=== PATIENT | male | born 1985 | race Two or more races ===

== ENCOUNTER 2023-03-18 22:07 | Emergency (ER) | payer OTHER ==
[~2023-03-18] VITALS: Ht 205.7 cm; Wt 97.5 kg
[2023-03-19 01:06] LABS: HEMATOCRIT 43.8 % (39.0-48.0); HEMOGLOBIN 15.3 g/dL (13-16.00); MEAN CELL VOLUME 86.1 fL (80.0-100.00); MEAN CORPUSCULAR HEMOGLOBIN 30.2 pg (27.00-32.0); PLATELET COUNT 287 K/uL (150-450); RED BLOOD COUNT 5.08 M/uL (4.00-6.00); RED CELL DISTRIBUTION WIDTH 13.7 % (11.5-14.5)
[2023-03-19 01:32] LABS: CREATININE SERUM 1.19 mg/dL (0.70-1.30); GFR 69.17; POTASSIUM 3.97 mEq/L (3.5-5.1)
== END 2023-03-19 03:50 ==
LOC: ER 22:07
PROVIDERS: General Practice
DX: F41.0 Panic disorder [episodic paroxysmal anxiety] (principal); R07.89 Other chest pain

== ENCOUNTER 2023-04-11 00:04 | Emergency (ER) | payer OTHER ==
[~2023-04-11] VITALS: Ht 175.3 cm; Wt 93.9 kg
[2023-04-11] MEDS ORDERED: ZESTRIL10 M1 (00:45)
[2023-04-11] MEDS ORDERED: CLONAZEPAM0.25 MG PO (00:45)
[2023-04-11] MEDS ORDERED: CLONAZEPAM1 M1 (00:45)
== END 2023-04-11 05:02 | disposition home or self-care (01) ==
LOC: ER 00:04
DX: I10 Essential (primary) hypertension (principal)